=== PATIENT | male | born 1990 | race African-American/Black ===

== ENCOUNTER 2024-12-21 04:55 | Inpatient (IN) | payer OTHER ==
[~2024-12-21] VITALS: Ht 180.3 cm; Wt 91.2 kg
[2024-12-21 05:33] LABS: BASO # 0.0 10^3/uL (0.0-0.2); BASO % 0.1 % (0.0-1.0); EOS # 0.0 10^3/uL (0.0-0.5); EOS % 0.0 % (0.0-3.0); LYMPH # 0.4 10^3/uL (1.5-5.0); LYMPH % 4.5 % (24.0-44.0); MONO # 0.6 10^3/uL (0.0-0.8); MONO % 6.4 % (2.0-8.0); NEUTROPHILS # 8.0 10^3/uL (1.5-8.5); NEUTROPHILS % 88.4 % (36.0-66.0); PLATELET COUNT, AUTOMATED 153 10^3/uL (150-450)
[2024-12-21 05:52] LABS: ALT/SGPT 40 U/L (7.0-40); AST/SGOT 48 U/L (<34); CALCIUM LEVEL 9.1 MG/DL (8.5-10.1); CARBON DIOXIDE LEVEL 28 MMOL/L (20-31); CHLORIDE LEVEL 92 MMOL/L (98-107); CREATININE FOR GFR 0.91 MG/DL (0.70-1.30); GLOMERULAR FILTRATION RATE > 90.0 (>60); POTASSIUM SERUM 3.8 MMOL/L (3.5-5.1); SODIUM LEVEL 131 MMOL/L (136-145)
[2024-12-21] MEDS ORDERED: ISOVUE-370 76% 100 ML VIAL As Ordered ONE (06:09)
[2024-12-21] MEDS: NS (Normal Saline) 0.9% 1,000 ML IV ONE ×2 (06:29→10:17)
[2024-12-21] MEDS: KETOROLAC 30 MG/ML 1 ML VIAL IV ONE (06:29)
[2024-12-21] MEDS: ONDANSETRON 4MG/2ML VIAL IV ONE ×2 (06:29→08:29)
[2024-12-21 06:44] LABS: KETONE, URINE AUTO RFX 1+ mg/dL (NEGATIVE); LEUKOCYTE ESTERASE UR AUTO RFX NEGATIVE (NEGATIVE); MUCUS, URINE RFX LARGE (NEGATIVE); NITRITE, URINE AUTO RFX NEGATIVE (NEGATIVE); RBC, URINE AUTO RFX 1 /HPF (0-3); SQUAM EPITHELIAL CELL UR AURFX 0 /HPF (0-6); WBC, URINE AUTO RFX 3 /HPF (0-3)
[2024-12-21 07:36] LABS: CK-MB VALUE MASS < 1.0 NG/ML (<3.6)
[2024-12-21 07:37] LABS: CPK CREATINE PHOSPHOKINASE 267 U/L (46-171)
[2024-12-21] MEDS: MORPHINE 4 MG/ML 1 ML VIAL IV ONE ×2 (08:29→10:17)
[2024-12-21 09:06] LABS: CK-MB VALUE MASS < 1.0 NG/ML (<3.6)
[2024-12-21 09:08] LABS: CPK CREATINE PHOSPHOKINASE 278 U/L (46-171)
[2024-12-21] MEDS ORDERED: HOME MED LIST COMPLETE! XX SCH (11:30)
[2024-12-21] MEDS: PANTOPRAZOLE 40MG VIAL IV ONE (11:32)
[2024-12-21] MEDS: HYDROMORPHONE HCL 0.5 MG/0.5 ML SYRINGE IV ONE (11:33)
[2024-12-21] MEDS ORDERED: LISI5TAB11 PO (11:40)
[2024-12-21] MEDS ORDERED: ONDANSETRON 4MG/2ML VIAL IV PRN (13:35)
[2024-12-21] MEDS: NS (Normal Saline) 0.9% 1,000 ML IV SCH (14:51)
[2024-12-21] MEDS: MORPHINE 2 MG/ML 1 ML VIAL IV PRN (14:52)
[2024-12-21 16:08] VITALS: BP 178/110; TEMP 98.5; O2SAT 95
[2024-12-21 18:15] VITALS: BP 164/90
[2024-12-21 18:43] VITALS: BP 168/118; TEMP 101.1; O2SAT 90
[2024-12-21] MEDS: ACETAMINOPHEN 325 MG TAB PO PRN (19:05)
[2024-12-21] MEDS: NS 500 ML IV ONE (19:06)
[2024-12-21 19:17] VITALS: BP 158/115; TEMP 100.8; O2SAT 91
[2024-12-21] MEDS: PIPERACILLIN/TAZOBACTAM SOD 4.5 GM in DEXTROSE 5% (D5W) ADV/MINI-BAG 50 ML IV SCH (20:24)
[2024-12-21 20:50] VITALS: BP 156/102; TEMP 101.5; O2SAT 96
[2024-12-21] MEDS: METOPROLOL SUCC. 50 MG *XL* TAB PO SCH (21:52)
[2024-12-21 22:02] LABS: KETONE, URINE AUTO RFX 1+ mg/dL (NEGATIVE); LEUKOCYTE ESTERASE UR AUTO RFX NEGATIVE (NEGATIVE); MUCUS, URINE RFX SMALL (NEGATIVE); NITRITE, URINE AUTO RFX NEGATIVE (NEGATIVE); RBC, URINE AUTO RFX 0 /HPF (0-3); SQUAM EPITHELIAL CELL UR AURFX 0 /HPF (0-6); WBC, URINE AUTO RFX 2 /HPF (0-3)
[2024-12-22 03:53] VITALS: BP 155/115; TEMP 101.8; O2SAT 97
[2024-12-22] MEDS: KETOROLAC 30 MG/ML 1 ML VIAL IV PRN (05:31)
[2024-12-22 06:23] LABS: BASO # 0.0 10^3/uL (0.0-0.2); BASO % 0.1 % (0.0-1.0); EOS # 0.0 10^3/uL (0.0-0.5); EOS % 0.0 % (0.0-3.0); LYMPH # 0.5 10^3/uL (1.5-5.0); LYMPH % 5.1 % (24.0-44.0); MONO # 0.8 10^3/uL (0.0-0.8); MONO % 8.0 % (2.0-8.0); NEUTROPHILS # 8.8 10^3/uL (1.5-8.5); NEUTROPHILS % 86.4 % (36.0-66.0); PLATELET COUNT, AUTOMATED 124 10^3/uL (150-450)
[2024-12-22 06:54] LABS: CALCIUM LEVEL 8.0 MG/DL (8.5-10.1); CARBON DIOXIDE LEVEL 26 MMOL/L (20-31); CHLORIDE LEVEL 96 MMOL/L (98-107); CHOLESTEROL LEVEL 176 MG/DL (<200); CHOLESTEROL RISK RATIO 2.28 (<5); CREATININE FOR GFR 1.05 MG/DL (0.70-1.30); GLOMERULAR FILTRATION RATE > 90.0 (>60); LDL CHOLESTEROL 80.5 MG/DL (<100); MAGNESIUM LEVEL 1.3 MG/DL (1.8-2.4); NON-HDL-C 98.9 MG/DL; POTASSIUM SERUM 3.5 MMOL/L (3.5-5.1); SODIUM LEVEL 132 MMOL/L (136-145); TRIGLYCERIDES LEVEL 92 MG/DL (<150)
[2024-12-22] MEDS ORDERED: HOME MED LIST COMPLETE! XX SCH (08:05)
[2024-12-22] MEDS: MEROPENEM 2 GM, VIAL MATE ADAPTER 1 EACH in NS 100 ML IV SCH (08:29)
[2024-12-22] MEDS: ENOXAPARIN 40 MG/0.4 ML SYRINGE (J1650 PER 10MG) SC SCH (08:30)
[2024-12-22] MEDS: PANTOPRAZOLE 40MG TAB PO SCH (08:30)
[2024-12-22] MEDS ORDERED: VANCOMYCIN HCL 1,000 MG, VIAL MATE ADAPTER 1 EACH in NS 250 ML IV SCH (09:35)
[2024-12-22] MEDS: MAG SULF 1GM/100ML (MAG RUN) 1 GM in IV 1 EA IV SCH (10:27)
[2024-12-22] MEDS: MIRALAX *UNIT DOSE* 17 GM PACKET PO PRN (10:28)
[2024-12-22 11:11] LABS: CALCIUM LEVEL 7.6 MG/DL (8.5-10.1); CARBON DIOXIDE LEVEL 25 MMOL/L (20-31); CHLORIDE LEVEL 97 MMOL/L (98-107); CREATININE FOR GFR 1.00 MG/DL (0.70-1.30); GLOMERULAR FILTRATION RATE > 90.0 (>60); POTASSIUM SERUM 4.0 MMOL/L (3.5-5.1); SODIUM LEVEL 132 MMOL/L (136-145)
[2024-12-22 12:00] VITALS: BP 157/98; TEMP 101.3; O2SAT 91
[2024-12-22] MEDS: VANCOMYCIN HCL 1,750 MG, VIAL MATE ADAPTER 1 EACH in NS 500 ML IV ONE (12:49)
[2024-12-22] MEDS: PIPERACILLIN/TAZOBACTAM SOD 3.375 GM in DEXTROSE 5% (D5W) ADV/MINI-BAG 50 ML IV SCH (15:03)
[2024-12-22] MEDS: KCL 10MEQ/100ML SWI (KRUN) 10 MEQ in IV 1 EA IV ONE (15:41)
[2024-12-22 16:00] VITALS: TEMP 100
[2024-12-22 17:49] LABS: CALCIUM LEVEL 8.0 MG/DL (8.5-10.1); CARBON DIOXIDE LEVEL 29 MMOL/L (20-31); CHLORIDE LEVEL 94 MMOL/L (98-107); CREATININE FOR GFR 1.08 MG/DL (0.70-1.30); GLOMERULAR FILTRATION RATE > 90.0 (>60); POTASSIUM SERUM 3.6 MMOL/L (3.5-5.1); SODIUM LEVEL 132 MMOL/L (136-145)
[2024-12-22 19:45] VITALS: BP 137/100; TEMP 102.4; O2SAT 92
[2024-12-22] MEDS: VANCOMYCIN HCL 1,000 MG, VIAL MATE ADAPTER 1 EACH in NS 250 ML IV SCH (20:48)
[2024-12-22] MEDS: NS (Normal Saline) 0.9% 1,000 ML IV SCH (20:48)
[2024-12-22 22:13] VITALS: TEMP 101.2
[2024-12-22 22:13] LABS: CALCIUM LEVEL 8.3 MG/DL (8.5-10.1); CARBON DIOXIDE LEVEL 27 MMOL/L (20-31); CHLORIDE LEVEL 97 MMOL/L (98-107); CREATININE FOR GFR 0.99 MG/DL (0.70-1.30); GLOMERULAR FILTRATION RATE > 90.0 (>60); POTASSIUM SERUM 3.3 MMOL/L (3.5-5.1); SODIUM LEVEL 133 MMOL/L (136-145)
[2024-12-23] VITALS (9 sets, daily range): BP systolic 144–159; BP diastolic 82–105; TEMP 97.1–102.2; O2SAT 86–99
[2024-12-23 04:06] LABS: PLATELET COUNT, AUTOMATED 121 10^3/uL (150-450)
[2024-12-23 04:29] LABS: CALCIUM LEVEL 7.7 MG/DL (8.5-10.1); CARBON DIOXIDE LEVEL 28 MMOL/L (20-31); CHLORIDE LEVEL 95 MMOL/L (98-107); CREATININE FOR GFR 1.03 MG/DL (0.70-1.30); GLOMERULAR FILTRATION RATE > 90.0 (>60); POTASSIUM SERUM 3.3 MMOL/L (3.5-5.1); SODIUM LEVEL 132 MMOL/L (136-145)
[2024-12-23] MEDS: MORPHINE 4 MG/ML 1 ML VIAL IV PRN (08:08)
[2024-12-23] MEDS: POTASSIUM CHLORIDE 10MEQ SR TABLET PO SCH (09:11)
[2024-12-23] MEDS: MAG SULF 1GM/100ML (MAG RUN) 1 GM in IV 1 EA IV ONE (09:11)
[2024-12-23 09:52] LABS: CALCIUM LEVEL 7.8 MG/DL (8.5-10.1); CARBON DIOXIDE LEVEL 26 MMOL/L (20-31); CHLORIDE LEVEL 96 MMOL/L (98-107); CREATININE FOR GFR 0.97 MG/DL (0.70-1.30); GLOMERULAR FILTRATION RATE > 90.0 (>60); POTASSIUM SERUM 3.4 MMOL/L (3.5-5.1); SODIUM LEVEL 132 MMOL/L (136-145)
[2024-12-23 16:15] LABS: CALCIUM LEVEL 7.8 MG/DL (8.5-10.1); CARBON DIOXIDE LEVEL 29 MMOL/L (20-31); CHLORIDE LEVEL 94 MMOL/L (98-107); CREATININE FOR GFR 0.94 MG/DL (0.70-1.30); GLOMERULAR FILTRATION RATE > 90.0 (>60); POTASSIUM SERUM 3.6 MMOL/L (3.5-5.1); SODIUM LEVEL 132 MMOL/L (136-145)
[2024-12-23 23:31] LABS: CALCIUM LEVEL 8.2 MG/DL (8.5-10.1); CARBON DIOXIDE LEVEL 27 MMOL/L (20-31); CHLORIDE LEVEL 96 MMOL/L (98-107); CREATININE FOR GFR 0.92 MG/DL (0.70-1.30); GLOMERULAR FILTRATION RATE > 90.0 (>60); POTASSIUM SERUM 3.8 MMOL/L (3.5-5.1); SODIUM LEVEL 133 MMOL/L (136-145)
[2024-12-24] VITALS (10 sets, daily range): BP systolic 160–168; BP diastolic 102–115; TEMP 97.9–99.6; O2SAT 84–98
[2024-12-24] MEDS: MORPHINE 4 MG/ML 1 ML VIAL IV PRN (02:15)
[2024-12-24 04:57] LABS: CALCIUM LEVEL 8.2 MG/DL (8.5-10.1); CARBON DIOXIDE LEVEL 28 MMOL/L (20-31); CHLORIDE LEVEL 96 MMOL/L (98-107); CREATININE FOR GFR 0.90 MG/DL (0.70-1.30); GLOMERULAR FILTRATION RATE > 90.0 (>60); POTASSIUM SERUM 3.7 MMOL/L (3.5-5.1); SODIUM LEVEL 134 MMOL/L (136-145)
[2024-12-24 04:59] LABS: PLATELET COUNT, AUTOMATED 146 10^3/uL (150-450)
[2024-12-24 06:44] LABS: MAGNESIUM LEVEL 1.9 MG/DL (1.8-2.4)
[2024-12-24] MEDS: POTASSIUM CHLORIDE 10MEQ SR TABLET PO ONE (09:53)
[2024-12-25 03:49] VITALS: BP 160/100; TEMP 98.1; O2SAT 91
[2024-12-25 06:35] LABS: PLATELET COUNT, AUTOMATED 191 10^3/uL (150-450)
[2024-12-25 08:25] VITALS: BP 148/108
[2024-12-25] MEDS ORDERED: ONDA-282 PO (13:23)
[2024-12-25] MEDS ORDERED: AMOX500T2 PO (13:23)
[2024-12-25] MEDS ORDERED: METO1TAB7 PO (13:23)
== END 2024-12-25 13:40 | disposition home or self-care (01) | DRG 438 ==
LOC: M ED 04:55 → M ED INP 13:25 → M MSPAV 16:08
PROVIDERS: ADMIT Student in an Organized Health Care Education/Training Program; ATTEND Student in an Organized Health Care Education/Training Program
DX: K85.20 Alcohol induced acute pancreatitis without necrosis or infection (principal); J18.9 Pneumonia, unspecified organism; E87.1 Hypo-osmolality and hyponatremia; E83.42 Hypomagnesemia; E87.6 Hypokalemia; I10 Essential (primary) hypertension; Z79.899 Other long term (current) drug therapy